=== PATIENT | male | born 1965 | race Caucasian/White ===

== ENCOUNTER 2024-06-23 14:19 | Outpatient (CLI) | payer OTHER ==
[~2024-06-23 14:19] MED LIST: ASA81 MG; ATROVENT 00.5 MG/2.5 IH; CATAFLAM50 MG PO; COZAAR100 MG; FLONASE16 GM NS; GILTUSS COUGH-118 ML PO; LEVAQUIN500 MG PO; TORADOL60 MG IM; ZYRTEC10 MG PO; [UNRECOGNIZED DRUG - OTHER]
== END 2024-06-23 14:27 | disposition home or self-care (01) ==
LOC: RAD 14:19
PROVIDERS: ATTEND Chiropractor
DX: M54.50 Low back pain, unspecified (principal); M54.42 Lumbago with sciatica, left side; M54.41 Lumbago with sciatica, right side